=== PATIENT | male | born 1985 | race Caucasian/White ===

== ENCOUNTER 2023-02-04 23:41 | Emergency (ER) | payer OTHER, SELFPAY ==
[2023-02-04 23:42] VITALS: PULSE 73; RESP 13; TEMP 36.4; O2SAT 99
--- NOTE | 2023-02-04 23:49 | ED.GENADUL_ITS ---
Discharge Plan Disposition Patient Disposition: Against Medical Advice Condition: Good Discharge Details Chief Complaint: Abd Prob Clinical Impression: Abdominal pain Primary Care Provider: None,None ED Provider: Jimmy Hardin Home Meds and New Rx's Prescriptions: No Action methadone 10 mg/mL Concentrate 105 mg Rx Instructions: 105 mL brand unknown, prescribed by [facility] bupropion HCl [Wellbutrin] 75 mg Tablet 150 mg PO 2XD Discharge Instructions Instructions: Abdominal Pain (ED) Additional Instructions: At this time no work-up has been performed. Labs have not been drawn and the CAT scan has not been done. These were our recommendations for medical evaluation. You have chosen to hold off on these evaluations, which is your decision understanding the risks and benefits, of which the worst may be or lifelong disability. If you notice any worsening of your symptoms, or any new symptoms such as vomiting, diarrhea, fever, chills, shortness of breath, chest pain, numbness, weakness, or fainting , please return immediately to the emergency department for reevaluation. Please follow up with your primary care provider as soon as possible for reassessment and reevaluation. As always, it was a pleasure participating in your medical care today. Medical Decision Making 37-year-old male who denies any significant past medical history presents today from the local [facility]way system for evaluation of right lower qu adrant abdominal pain. Patient states that today he had mild achiness in his lower abdomen. He tried to have a bowel movement 3 times. He had multiple bowel movements but does not know what it looks like. He states that he nearly passed out because the pain was so bad. He also had a few episodes of vomiting. He denies any chest pain or shortness of breath. He does not know if there was any blood in his vomit or stool. He denies any previous abdominal surgeries. No other complaints at this time. Pain is sharp and achy in nature. It radiates to his groin. Additionally he states that he denies any body packing or stuffing and states that he has been in solitary confinement for weeks. Exam demonstrates very mild right lower quadrant tenderness. Dry mucous membranes. No testicular tenderness to suggest testicular torsion. Symptoms are concerning for gastroenteritis versus kidney stone versus appendicitis. We will treat his pain, get a CAT scan, evaluate for concerning etiologies, monitor closely and reassess. 12:44 AM Patient is now stating that his pain has resolved completely, he feels much better, and is requesting discharge. 2 attempts were made for an IV by nursing staff, and were unsuccessful. Patient states that he does not want any more attempts or blood draws or CAT scans. He states that his symptoms have completely resolved, I feel fine, the thing his past, and I want to go home now. Repeat exam shows no evidence of an acute surgical abdomen. Tenderness has resolved. I did discuss imaging options for the patient and at this time through notable discussion, weighing the risks and benefits, and a shared decision making process the patient has refused imaging at this time. Patient is of an appropriate age to make decisions. The patient is of sound mind, appears clinically sober, and has capacity to make decisions by my clinical exam. Respecting the patient's wishes we will hold off on imaging. Patient is of a appropriate age to make decisions. The patient is of sound mind, appears clinically sober, and has capacity to make decisions by my clinical exam. We have provided options for treatment and discussed the risks and benefits of these options and refusing these options, including and disability specific to the patient's pathology. Patient is able to discuss the risks and benefits and alternatives of treatment and refusing treatment. The patient chooses to leave before evaluation and treatment is complete AGAINST MEDICAL ADVICE. I have extensively reviewed the treatment plan and discharge instructions with the patient. I have addressed all patient concerns at this time. The patient was made aware of what symptoms to monitor for that would warrant a return to the emergency department. Discussed the plan with the patient, they demonstrate verbal understanding and agreement with our assessment and plan at this time. The documentation in this chart was dictated using [employer] dictation software. Please excuse any dictation errors. HPI General Date/Time Provider Initiated Documentation: 02/04/23 23:47 . HPI Narrative: 37-year-old male who denies any significant past medical history presents today from the local half-way system for evaluation of right lower quadrant abdominal pain. Patient states that today he had mild achiness in his lower abdomen. He tried to have a bowel movement 3 times. He had multiple bowel movements but does not know what it looks like. He states that he nearly passed out because the pain was so bad. He also had a few episodes of vomiting. He denies any chest pain or shortness of breath. He does not know if there was any blood in his vomit or stool. He denies any previous abdominal surgeries. No other complaints at this time. Pain is sharp and achy in nature. It radiates to his groin. Related Data Home Medications Medication Instructions Recorded Confirmed methadone 10 mg/mL oral concentrate 105 mg 02/04/23 bupropion HCl 75 mg tablet 150 mg PO 2XD 02/05/23 02/05/23 Allergies Allergy/AdvReac Type Severity Reaction Status Date / Time Penicillins Allergy Unverified 02/04/23 23:39 General Stated Complaint: Abd Prob AMBER: 3 Review of Systems All systems reviewed & are unremarkable except as noted in HPI and below PFSH All Active Problems (Updated 02/05/23 @ 00:38 by Jimmy Hardin DO) Abdominal pain (Acute) Social History Smoking/Tobacco Use Status: Former Tobacco Use Smoking risk assessment performed?: Yes Alcohol Intake: former Drug use: Daily Substance use type: former substance user Details: Prescription methadone for no reason Housing: other Do you feel safe at home: Yes Do you feel safe in your relationship?: Yes Exam Narrative Exam Narrative: 1.Const: Well-nourished, Well-developed, appearing stated age 2.Eyes: PERRL, no conjunctival injection, and symmetrical lids. 3.ENT: Atraumatic external nose and ears. Dry MM. Neck: Symmetric, trachea midline, No thyromegaly. 4.CVS: +S1/S2, No murmurs or gallops. Peripheral pulses 2+ and equal in all extremities. Brisk capillary refill in all extremities. 5.RESP: Unlabored respiratory effort. Clear to auscultation bilaterally. No wheezes rales or rhonchi 6.GI: Mild right lower quadrant tenderness. Pain at McBurney's point. Negative Ramachandran sign. No genital tenderness. No testicular tenderness. 7.MSK: Normocephalic/Atraumatic, Extremities w/o deformity or ttp No cyanosis or clubbing, Normal movement of all extremities 8.Skin: Warm, Dry. No rashes or lesions. 9.Neuro: client services analyst II-XII grossly intact. Sensation grossly intact, no focal neurologic deficits. 10.Psych: (AAO) x3. Appropriate mood and affect Course Vital Signs Vital signs: Vital Signs Temperature 36.4 C L 02/04/23 23:42 Pulse 73 02/04/23 23:42 Respiratory Rate 13 02/04/23 23:42 Pulse Oximetry 99 02/04/23 23:42 Temperature 36.4 C L 02/04/23 23:42 Temperature Source Oral 02/04/23 23:42 Pulse 73 02/04/23 23:42 Respiratory Rate 13 02/04/23 23:42 Blood Pressure Position Supine 02/04/23 23:42 Pulse Oximetry 99 02/04/23 23:42 Oxygen Delivery Method Room Air 02/04/23 23:42 Oxygen Flow Rate 0 02/04/23 23:42 Pain Level 0 02/04/23 23:42
--- NOTE | 2023-02-05 00:18 | NUR.NOTE ---
Pt presents to ED via EMS from long term accompanied by electronic intelligence officer with cc of abd pain onset after dinner approx 1700 02/04/23. Pt was handcuffed upon arrival, handcuffs removed by electronic intelligence officer per request by medical staff. Pt reports was having difficulty going to bathroom, then had a large bowel movement also experiencing vomiting, intense abd pain and stated feeling like passing out with the exertion of going to bathroom. Pt also states i am really dehydrated, has abd tenderness upon palpation, abd soft. Pt skin is dry, warm and appropriate for ethinicity, airway patent and self-maintained on RA, VSS, AOx4. No other complaints at this time. Pt hooked to VS monitor, bed in lowest position, call light within reach, oriented to ED process and environment.
--- NOTE | 2023-02-05 00:49 | NUR.NOTE ---
This RN was informed by Sandy FISHER that after multiple failed iv attempts, pt now feels better and desires to return to [facility] and no longer wants medical attention. Provider informed, pt discharged
== END 2023-02-05 00:51 | disposition left against medical advice (07) ==
PROVIDERS: Emergency Provider Student in an Organized Health Care Education/Training Program
DX: R10.31 Right lower quadrant pain (principal); R11.2 Nausea with vomiting, unspecified; Z87.891 Personal history of nicotine dependence; Z53.29 Procedure and treatment not carried out because of patient's decision for other reasons
CPT/HCPCS: 80053; 99282; 83605; 85025